=== PATIENT | male | born 1960 | race Caucasian/White ===

== ENCOUNTER 2021-08-29 10:24 | Day surgery (SDC) | payer OTHER ==
[~2021-08-29] VITALS: Ht 175.3 cm; Wt 94.5 kg
--- NOTE | 2021-08-29 17:34 | NUR ---
PATIENT CAME BACK FROM PACU AT 1640 TODAY 08/29/21. POD 0 RIGHT ANTERIOR HIP REPLACEMENT PATIENT IS ALERT AND ORIENTED X4. VS ARE WNL AND IS ON RA. PATIENT DENIES PAIN AT THIS TIME. PATIENT DID HAVE A SPINAL DURING PROCEDURE AND CAN'T FEEL FROM RIGHT ABOVE THE KNEES DOWN TO HIS FEET (L3 DERMATOME). PATIENT IS ABLE TO MOVE FINGERS AND TOES WHEN ASKED. AQUACEL ON THE RIGHT HIP AND IT IS C/D/I. ICE PACK IS APPLIED TO THE RIGHT HIP. PATIENT HAS TOLERATED A SMALL AMOUNT OF PO INTAKE. CALL LIGHT WITHIN REACH. THE PLAN IS TO HAVE PAIN MANAGED AND WORK WITH PT/OT TOMORROW.
[2021-08-30 04:18] LABS: BASOPHILS ABSOLUTE AUTO 0.02 K/mm3 (0.00-0.23); BASOPHILS PERCENT AUTO 0 % (0-2); EOSINOPHILS PERCENT AUTO 0 % (0-6); Hematocrit 38.5 % (37.0-53.0); Hemoglobin 12.8 g/dL (13.5-17.5); IMMATURE GRAN ABSOLUTE AUTO 0.05 K/mm3 (0.00-0.10); IMMATURE GRAN PERCENT AUTO 0 % (0-1); LYMPHOCYTES ABSOLUTE AUTO 1.05 K/mm3 (0.84-5.20); LYMPHOCYTES PERCENT AUTO 7 % (21-46); MONOCYTES ABSOLUTE AUTO 1.04 K/mm3 (0.16-1.47); MONOCYTES PERCENT AUTO 7 % (4-13); Mean Corpuscular HGB 28.8 pg (26.0-34.0); Mean Corpuscular HGB Conc 33.2 g/dL (31.5-36.5); Mean Corpuscular Volume 87 fL (80-100); Mean Platelet Volume 11.7 fL (9.1-12.4); NEUTROPHILS ABSOLUTE AUTO 12.19 K/mm3 (1.96-9.15); NEUTROPHILS PERCENT AUTO 85 % (41-73); Platelet Count 250 K/mm3 (150-400); RDW Coefficient Variation 13.3 % (11.7-14.2); RDW Standard Deviation 41.7 fL (35.1-46.3); Red Blood Cell Count 4.45 M/mm3 (4.30-5.90); White Blood Cell Count 14.35 K/mm3 (4.00-11.30)
[2021-08-30 04:37] LABS: Anion Gap 7 mmol/L (6-16); Blood Urea Nitrogen 23 mg/dL (8-24); Bun/Creatinine Ratio 21.1 (12.0-20.0); CO2, Blood 24 mmol/L (21-32); Calcium, Blood 8.3 mg/dL (8.5-10.1); Chloride, Blood 105 mmol/L (98-108); Creatinine, Blood 1.09 mg/dL (0.60-1.20); Glomerular Filtration Rate >60 (60-); Glucose, Blood 141 mg/dL (70-99); Magnesium, Blood 1.8 mg/dL (1.6-2.4); Potassium, Blood 4.2 mmol/L (3.5-5.5); Sodium, Blood 136 mmol/L (136-145)
--- NOTE | 2021-08-30 04:59 | NUR ---
SHIFT SUMMARY POD0 R TOTAL ANTERIOR HIP ARTHROPLASTY, AQUACEL IN PLACE C/D/I. NO NUMBNESS OR TINGLING. VITAL SIGNS STABLE. VOIDING WELL. PAIN MANAGED WITH PO PAIN MEDICATION. AMBULATED IN HALLWAY, STANDBY ASSIST WITH GAIT BELT AND FWW. NO IV ACCESS AT THIS TIME. WILL REPORT TO ONCOMING RN.
[2021-08-30] MEDS ORDERED: Percocet 5-3251 EACH PO (08:57)
--- NOTE | 2021-08-30 09:13 | NUR ---
DISCHARGE NOTE: PATIENT WAS EDUCATED ON DISCHARGE INSTRUCTIONS. PATIENT VERBALIZED UNDERSTANDING OF INSTRUCTIONS. PAIN IS MANAGED WITH PO PAIN MEDICATIONS. 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 PATIENT WORKED WITH PT AND WAS CLEARED. HE IS ALERT AND ORIENTED X4. VS ARE WNL AND IS ON RA. RIGHT HIP HAS AN AQUACEL THAT IS C/D/I. HE IS ABLE TO AMBULATE. DENIES NUMBNESS AND TINGLING. IV WAS TAKEN OUT AND WNL. TOLERATING PO INTAKE AND IS VOIDING. HE IS DRESSED AND HAS HIS ITEMS PUT TOGETHER. PATIENT IS NOW AWAITING RIDE FROM HIS FAMILY THAT WILL COME PICK HIM UP AND TAKE HIM HOME.
== END 2021-08-30 10:40 | disposition home or self-care (01) ==
LOC: ORSCMMR 10:24 → PRE IP 12:15 → EDSTATUS 12:15 → SURS 16:35 → ORSCMMR 08-30 10:40
PROVIDERS: Orthopaedic Surgery
PROC: 0SR902A Replacement of Right Hip Joint with Metal on Polyethylene Synthetic Substitute, Uncemented, Open Approach (ICD-10-PCS; principal; 2021-08-29 12:15)
DX: M16.11 Unilateral primary osteoarthritis, right hip (principal); M87.851 Other osteonecrosis, right femur; Z87.891 Personal history of nicotine dependence
CPT/HCPCS: 36415; 72170; 80048; 83735; 85025; 97110; 97116; 97161; A9270; C1776; J0171; J0690; J0735; J1885; J2250; J2370; J2704; J2795; J3010